=== PATIENT | male | born 1950 | race Caucasian/White ===

== ENCOUNTER 2016-12-31 17:27 | Emergency (ER) | payer BC, OTHER ==
[~2016-12-31] VITALS: Ht 175.3 cm; Wt 82.8 kg
[~2016-12-31 17:27] MED LIST: ASPI-496 PO; SILD25TA PO
[2016-12-31 17:41] VITALS: BP 131/63
[2016-12-31] MEDS ORDERED: ATOR10TA9 PO (18:17)
[2016-12-31] MEDS ORDERED: MULTIVITAMIN (18:17)
[2016-12-31] MEDS ORDERED: FISH OIL (18:18)
== END 2016-12-31 19:12 | disposition home or self-care (01) ==
LOC: ED 18:55
DX: T17.228A Food in pharynx causing other injury, initial encounter (principal); K21.9 Gastro-esophageal reflux disease without esophagitis; E78.5 Hyperlipidemia, unspecified; F17.210 Nicotine dependence, cigarettes, uncomplicated; X58.XXXA Exposure to other specified factors, initial encounter; Y93.89 Activity, other specified; Y92.89 Other specified places as the place of occurrence of the external cause; Y99.8 Other external cause status
CPT/HCPCS: 99281

== ENCOUNTER → 2018-02-16 | Outpatient (CLI) | payer MEDICARE, OTHER ==
[~2018-02-16] MED LIST changes: +ATOR10TA9 PO; +FISH OIL; +MULTIVITAMIN
== END | disposition home or self-care (01) ==
LOC: CFH 06:49
PROVIDERS: ATTEND Licensed Practical Nurse
DX: Z87.891 Personal history of nicotine dependence (principal); Z13.6 Encounter for screening for cardiovascular disorders
CPT/HCPCS: 93978; 76706

== ENCOUNTER → 2018-09-21 | Outpatient (CLI) | payer MEDICARE, OTHER ==
[2018-09-21 12:39] LABS: CHLORIDE 109 mmol/L (98-107)
[2018-09-21 12:49] LABS: ALANINE AMINOTRANSFERASE 27 U/L (12-78); ALKALINE PHOSPHATASE 88 U/L (45-117); ANION GAP 9 mmol/L (5-15); BILIRUBIN,TOTAL 0.6 mg/dL (0.2-1.0); CALCIUM 8.4 mg/dL (8.5-10.1); CHOL/HDL RATIO 4.4; CHOLESTEROL, TOTAL 163 mg/dL (140-239); CREATININE 0.98 mg/dL (0.7-1.3); HDL CHOL % 23 % (26-37); HDL CHOLESTEROL (DIRECT) 37 mg/dL (40-60); LDL CHOLESTEROL,CALCULATED 96 mg/dL (54-169); LDL/HDL RATIO 2.6 (0.5-3.0); TOTAL PROTEIN 7.2 g/dL (6.4-8.2); TRIGLYCERIDES 152 mg/dL (50-200); VLDL CHOLESTEROL 30 mg/dL (0-25)
== END | disposition home or self-care (01) ==
LOC: CFH 07:28
PROVIDERS: ATTEND Nurse Practitioner
DX: E78.5 Hyperlipidemia, unspecified (principal)
CPT/HCPCS: 36415; 80053; 80061